=== PATIENT | female | born 1985 | race African-American/Black ===

== ENCOUNTER 2021-06-05 09:12 | Emergency (ER) | payer MEDICAID ==
[~2021-06-05] VITALS: Ht 160 cm; Wt 73.0 kg
[2021-06-05] MEDS ORDERED: KETOROLAC 60MG/2ML VIAL IM NR (10:00)
[2021-06-05] MEDS ORDERED: IBUP-2028 MT (11:32)
[2021-06-05 11:38] LABS: CLARITY URINE CLEAR (CLEAR); COLOR URINE YELLOW (YELLOW); KETONES URINE NEGATIVE (NEGATIVE); LEUKOCYTE ESTERASE URINE 1+ (NEGATIVE); NITRITE URINE NEGATIVE (NEGATIVE); OCCULT BLOOD URINE NEGATIVE (NEGATIVE); PROTEIN URINE NEGATIVE (NEGATIVE); SPECIFIC GRAVITY URINE 1.015 (1.005-1.030); UROBILINOGEN URINE 0.2 E.U./dL (0.2-1.0)
[2021-06-05 12:20] VITALS: BP 128/86
== END 2021-06-05 12:21 | disposition home or self-care (01) ==
LOC: ER 09:12
DX: M54.9 Dorsalgia, unspecified (principal)
CPT/HCPCS: 81003; 81025; 96372; 99283; J1885

== ENCOUNTER 2021-09-24 14:34 | Emergency (ER) | payer MEDICAID ==
[~2021-09-24] VITALS: Ht 162.6 cm; Wt 91.0 kg
[~2021-09-24 14:34] MED LIST: IBUP-2028 MT
[2021-09-24 14:55] VITALS: BP 136/93
[2021-09-24] MEDS ORDERED: HYDR-4001 MT ×4 (16:51→18:40)
[2021-09-24] MEDS ORDERED: HYDROCODONE/ACETAMINOPHEN 5/325MG TABLET PO ONE (17:00)
== END 2021-09-24 17:41 | disposition home or self-care (01) ==
LOC: ER 14:34
DX: S09.8XXA Other specified injuries of head, initial encounter (principal); S22.32XA Fracture of one rib, left side, initial encounter for closed fracture; S29.8XXA Other specified injuries of thorax, initial encounter; V43.52XA Car driver injured in collision with other type car in traffic accident, initial encounter; Y93.89 Activity, other specified; Y92.411 Interstate highway as the place of occurrence of the external cause
CPT/HCPCS: 71101; 72100; 99284